=== PATIENT | male | born 1965 | race Caucasian/White ===

== ENCOUNTER 2018-10-03 13:19 | Emergency (ER) | payer MEDICAID, OTHER ==
[2018-10-03] MEDS: KETOROLAC 60 MG INJ IM (16:39)
== END 2018-10-03 18:35 | disposition home or self-care (01) ==
LOC: FTE 13:19
DX: S89.91XA Unspecified injury of right lower leg, initial encounter (principal); X50.1XXA Overexertion from prolonged static or awkward postures, initial encounter; Y92.89 Other specified places as the place of occurrence of the external cause
CPT/HCPCS: 29505; 73562; 96372; 99284-25